=== PATIENT | female | born 1935 | race Caucasian/White ===

== ENCOUNTER 2016-08-05 22:05 | Emergency (ER) | payer OTHER, MEDICARE ==
[~2016-08-05] VITALS: Ht 162.6 cm; Wt 87.5 kg
[~2016-08-05 22:05] MED LIST: AMLODIPINE BESY10 MG PO; ASPIRIN325 MG PO; ATORVASTATIN CA40 MG PO; CALCIUM 600 +1 EAC3 PO; FENOFIBRATE160 M1 PO; HYDROCHLOROTH12.5 M3 PO; LISINOPRIL20 MG PO; LOPRESSOR50 MG PO; VITAMIN C WIT1000 MG PO
[2016-08-05 23:03] LABS: BASOPHIL COUNT 0.1 K/uL (0-0.1); EOSINOPHIL (%) 0.9 % (0-5); EOSINOPHIL COUNT 0.1 K/uL (0-0.3); HEMATOCRIT 43.6 % (36.0-46.0); IMMATURE GRANULOCYTE (%) 0.3 % (0.0-0.7); INSTRUMENT ABS NEUTROPHIL CT 7.5 K/uL; LYMPHOCYTE COUNT 1.3 K/uL (1.0-2.8); MCHC 32.6 G/DL (30.0-36.0); MEAN PLAT.VOLUME 11.8 uM^3 (9.5-12.4); MONOCYTE (%) 9.2 % (3-12); MONOCYTE COUNT 0.9 K/uL (0-0.8); NEUTROPHIL (%) 75.8 % (45-76); NEUTROPHIL COUNT 7.5 K/uL (1.8-6.4); PLATELET COUNT 281 K/uL (156-360); RBC DIS.WIDTH-CV 15.1 % (11.8-14.6); RBC DIS.WIDTH-SD 49.5 % (39-53); WHITE BLOOD COUNT 9.8 K/uL (4.1-10.2)
[2016-08-05 23:13] LABS: INTER. NORMALIZED RATIO 1.1; PROTHROMBIN TIME 11.4 (9.2-11.2); PTT 26.6 (25-32)
[2016-08-05 23:15] LABS: CHLORIDE 104 mEq/L (99-109); POTASSIUM 3.6 mEq/L (3.7-5.4); SODIUM 140 mEq/L (136-147)
[2016-08-05 23:17] LABS: GLUCOSE 171 mg/dL (70-99)
[2016-08-05 23:18] LABS: ANION GAP 12 MEQ/L (2-14)
[2016-08-05 23:19] LABS: TOTAL BILIRUBIN 0.3 mg/dL (0.0-1.0)
[2016-08-05 23:21] LABS: ALKALINE PHOSPHATASE 68 IU/L (3-129); GFR ESTIMATE (CALCULATED) 46 mL/min/
[2016-08-05 23:22] LABS: DIRECT BILIRUBIN 0.1 mg/dL (0.0-0.3); UREA NITROGEN (BUN) 26 mg/dL (9-23)
[2016-08-05 23:23] LABS: TROP-I INTERPRETATION NEGATIVE; TROPONIN-I < 0.01 ng/mL (0.0-0.30)
[2016-08-05 23:24] LABS: LIPASE 60 U/L (1.0-51.0)
[2016-08-05 23:46] LABS: ADD MIUA? YES; BILIRUBIN NEGATIVE; BLOOD NEGATIVE; COLOR YELLOW ((YELLOW)); GLUCOSE (STRIP) NEGATIVE; KETONES NEGATIVE; LEUKOCYTES LARGE; NITRITE NEGATIVE; PROTEIN (STRIP) NEGATIVE; SPECIFIC GRAVITY 1.018 (1.000-1.030); UROBILINOGEN 0.2 MG/DL (0.2-1.0)
[2016-08-05 23:53] LABS: BACTERIA RARE /HPF; EPITHELIAL CELLS RARE /HPF; MUCUS TRACE /LPF; UCUL ADDED? YES; WHITE BLOOD CELLS TNTC /HPF (0-5)
[2016-08-05 23:58] LABS: RED BLOOD CELLS 0-5 /HPF (0-5)
[2016-08-06] MEDS ORDERED: CIPRO250 MG PO (01:17)
[2016-08-06 01:51] VITALS: BP 124/63
== END 2016-08-06 02:07 | disposition home or self-care (01) ==
LOC: EME → EDBD 22:05 → EME 22:05
PROVIDERS: Emergency Medicine
DX: N39.0 Urinary tract infection, site not specified (principal); E86.0 Dehydration; R73.9 Hyperglycemia, unspecified; I10 Essential (primary) hypertension; I25.2 Old myocardial infarction; I25.10 Atherosclerotic heart disease of native coronary artery without angina pectoris; Z98.61 Coronary angioplasty status; Z87.891 Personal history of nicotine dependence; Z79.82 Long term (current) use of aspirin
CPT/HCPCS: 70450; 71020; 80048; 80076; 81003; 83690; 84484; 85025; 85610; 85730; 87086; 93005; 99281; 99285